=== PATIENT | male | born 1965 | race Caucasian/White ===

== ENCOUNTER → 2016-12-22 | Day surgery (SDC) | payer OTHER, MEDICARE ==
[~2016-12-22] VITALS: Ht 175.3 cm; Wt 108.9 kg
[~2016-12-22] MED LIST: ASPIRIN EC325 MG PO; BENAZEPRIL HCL5 MG PO; GLIPIZIDE10 M2 PO; LANTUS SOL100 UNIT/1 SC; LOPRESSOR 25MG25 MG PO; LOTENSIN10 MG PO; LOVENOX40 MG/0.1 SC; MELOXICAM15 M1 PO; METOPROLOL TART25 M1 PO; NEURONTIN100 M1 PO; NEURONTIN100 MG PO; OXYCODONE HCL10 M2 PO; PERCOCET 5-3251 EACH PO; PRAVASTATIN SOD10 MG; PRAVASTATIN SOD40 M2 PO; PROTONIX40 M3 PO
--- NOTE | 2016-12-22 10:07 | Operative Report ---
Operative/Inv Procedure Report Surgery Date: 12/22/16 Name of Procedure: right epididymal cyst excision Pre-Operative Diagnosis: right testicle pain with epididymal cyst Post-Operative Diagnosis: same Estimated Blood Loss: less than 50ml Surgeon/Standards Engineer: DARIA LORENZO MD Anesthesia: laryngeal mask airway Complications: none Condition: stable Operative Indication: right testicle pain with an enlarged right epididiymal cyst Operative/Procedure Note Note: 51 yo male with a hx of right testicle pain. Scrotal US showed rigth enlarged epidymal cyst. He desired to have this excised. He understands that his pain may not change. Risks, benefits and alternatives were given and all questions answered. Patient was taken to the operating room and placed on the operating room table in the supine position. He was prepped and draped in the standard sterile fashion after being shaved. 1%lidocaine was infiltrated into the right cord area. An incision was made over the overlying cyst on the right side. The layers were cut into with the scalpel until the cyst was encountered. The cyst was carefully dissected free from the surrounding tissue and excised in its entirety intact. This was passed off the field for pathology evaluation. The area was inspected and any bleedrs were point coagulated with the bovie cautery. The layers were closed with 3-0 vicryl sutures interrrupted. This was followed by interrupted 3-0 chromic cutures. Telfa was applied after bacitracin and a scotral support with fluff. The sponge and needle count were correct at the end of the case and the patient tolerated the procedure well. Findings: right enlarged epididymal cyst Discharge Disposition: PACU
== END ==
LOC: STS 04:25
DX: N50.3 Cyst of epididymis (principal); N50.811 Right testicular pain; I10 Essential (primary) hypertension; E11.9 Type 2 diabetes mellitus without complications; Z79.84 Long term (current) use of oral hypoglycemic drugs; F17.200 Nicotine dependence, unspecified, uncomplicated
CPT/HCPCS: 88305; J0690; J2250

== ENCOUNTER 2017-04-26 04:24 | Inpatient (IN) | payer OTHER, MEDICARE ==
[~2017-04-26] VITALS: Ht 175.3 cm; Wt 106.1 kg
[~2017-04-26 04:24] MED LIST changes: -LOVENOX40 MG/0.1 SC; -METOPROLOL TART25 M1 PO; -PERCOCET 5-3251 EACH PO
--- NOTE | 2017-04-26 10:00 | Operative Report ---
Operative/Inv Procedure Report Surgery Date: 04/26/17 Name of Procedure: Right total knee arthroplasty Pre-Operative Diagnosis: Right knee degenerative joint disease Post-Operative Diagnosis: Right knee degenerative joint disease Estimated Blood Loss: 50ml to 100ml Surgeon/Assignment Clerk: MONIQUE ROY,BENJAMIN Stevens Anesthesia: block, spinal Implants: [employer] Legion Size 7 cruciate retaining legion oxinium femoral component Size 7 mm tibia baseplate 9 mm legion CR XLPE high flexion insert 23 mm patella Drains: Hemovac Complications: None Condition: Stable to PACU Operative Indication: This is a 51-year-old male with long-standing right knee pain that has failed conservative care. X-ray showed advanced knee arthritis. Risks and benefits of the procedure were discussed with the patient at length. Risks include but are not limited to nerve damage, muscle damage, infection, blood loss, blood clots, pulmonary embolus, and even . The patient agreed to the above risks and elected to proceed with surgery. Operative/Procedure Note Note: The patient was taken to the operating room. Anesthesia was induced after the timeout was performed. The lower extremity was prepped and draped in the normal sterile fashion. IV antibiotics were given prior to incision. The site marking was visualized prior to incision. After the leg was prepped and draped, an esmarch was used to exsanguinate the extremity. The tourniquet was inflated. A midline incision was made proximal to the patella extending down to the tibial tubercle. A medial parapatellar approach was then made. The skin was retracted and the extensor mechanism was incised. The knee was taken down into full extension. The patellar fat pad was resected. The medial retinaculum was then taken down. The synovium over the distal femur was then resected. The patella was everted and the knee was flexed up. The lateral meniscus was then excised. The ACL was removed. A drill was then used to open up the distal femur. The intramedullary guide was then applied. A 6 distal femoral cut was then made. The femur was then sized. The chamfer guide was then applied. The anterior, posterior, and chamfer cuts were then made while protecting the patellar tendon with a Hohmann retractor in the medial collateral ligament with a Z retractor. A pickle fork was then used to deliver the tibia. The extramedullary tibial guide was then applied. The proximal tibial cut was made. The medial and lateral meniscus were then excised. The osteophytes were removed with a Rongeur. The tibia was sized and the trial base plate was then pinned in place. A trial femoral component was placed and a trial polyethylene insert was then applied as well. The knee was taken through a range of motion and was noted to be quite stable. The patella was then everted, sized, and then reamed. A trial patellar component was placed and the knee was taken through range of motion. The patella was noted to be quite stable. All trial instruments were then removed. The knee was copiously irrigated. Retractors were placed in the final components were then cemented in. A trial polyethylene insert was then placed. After the cement was hardened, the excess cement was removed. The trial poly-insert was then removed. The knee was copiously irrigated. The final poly insert was inserted. The tourniquet was let down. Any bleeding vessels were identified and cauterized. A 1/8 inch Hemovac drain was then placed. The extensor mechanism was closed with #1 Vicryl suture in a simple interrupted fashion. The skin was closed with 2-0 Vicryl suture. A running subcuticular 4-0 Monocryl stitch was then placed. Dermabond was applied. A dry sterile dressing was placed and patient was transferred to PACU in stable condition.
[2017-04-26 13:30] VITALS: BP 138/72
[2017-04-26 14:00] VITALS: BP 138/72
--- NOTE | 2017-04-26 15:15 | NUR ---
NURSING NOTE: PT ARRIVED TO FLOOR AT 1323. PT A&O, DSG TO RIGHT KNEE CDI, TIMBO DRAIN AND ON Q PUMP IN PLACE. IVF INFUSING. MEDICATED WITH IV DILAUDID FOR PAIN OF 7/10 WITH GOOD RESULTS. MCGEE IN PLACE. RESTING COMFORTABLY IN BED AT PRESENT TIME.
--- NOTE | 2017-04-26 15:45 | Admission Core Measures ---
Admission Meds I reviewed the following Meds: Current Medications Sig/Henny Start time Last Medication Dose Stop Time Status Admin Acetaminophen 1,000 MG Q6H 04/26 1600 AC (Ofirmev) Cefazolin Sodium 2 GM IQ8 04/26 1600 AC (Kefzol) 04/27 0029 N/A 1 UNIT (No Carrier) Docusate Sodium 100 MG DAILY NEEDED PRN 04/26 1345 AC (Colace) Enoxaparin Sodium 40 MG DAILY 04/27 1000 AC (Lovenox) Hydromorphone HCl 1 MG Q2-3 HRS NEEDED.. 04/26 1345 AC 04/26 (Dilaudid) 1338 Insulin Human Regular 0 TIDAC/HS 04/26 1200 AC (NovoLIN R) Ketorolac 30 MG Q6H 04/26 1900 AC Tromethamine 04/29 1301 (Toradol) Lisinopril 10 MG DAILY 04/27 1000 AC (Prinivil) Nicotine 21 MG DAILY 04/26 1407 AC (Nicoderm) Ondansetron HCl 4 MG Q6P PRN 04/26 1345 AC (Zofran) Oxycodone HCl 5 MG Q4P PRN 04/26 1415 AC (Roxicodone) Oxycodone HCl 10 MG Q4P PRN 04/26 1345 AC (Roxicodone) Polyethylene Glycol 17 GM DAILY NEEDED PRN 04/26 1345 AC (Miralax) Promethazine HCl 12.5 MG Q6P PRN 04/26 1345 AC (Phenergen) 05/03 1014 Sodium Chloride 1,000 ML .[id number] 04/26 1345 AC 04/26 (Normal Saline 0.9%) 1338 Acute Coronary Syndrome Inclusion Criteria ACS Diagnosis No Inpatient Core Measures LDL Reminder: If No, please order W/I first 24hr of stay Congestive Heart Failure Inclusion Criteria CHF Diagnosis No Cerebrovascular accident Inclusion Criteria CVA/TIA Diagnosis No Inpatient Core Measures Bedside Swallow Eval Reminder: If BSE failed, place ST order Antithrombotic Reminder: Order Antithrombotic Medication by end of day 2 Antithrombotic Reminder: Document Reason Antithrombotic Not ordered by end of day 2 AFIB/Flutter Reminder: If Present, add to problem list AFIB/Flutter Reminder: Order Anticoag Medication for pts with AFIB/Flutter Atherosclerosis Reminder: If Present, add to problem list LDL Reminder: If No, please order W/I first 24hr of stay PT Order Reminder: If No, please order Venous thromboembolism Inpatient Core Measures VTE Risk Factors: Age > 40, Surgery [facility] prophylaxis d/t No contraindications No VTE Pharm Prophylaxis d/t No contraindications Inclusion Criteria - Per Current guidelines, there needs to be overlap - treatment for the first 5 days of Warfarin therapy. - Parenteral Anticoagulation (IV or SC) needs to be - given along with Warfarin therapy. VTE Diagnosis No VTE Type NONE VTE Confirmed by (Test) NONE Problem List As ranked by this Provider includes Assessment & Plan 1. Unilateral primary osteoarthritis, right knee HOME MEDS Home Med List Benazepril HCl 5 MG TABLET 2 TAB PO DAILY HTN (Reported) Gabapentin (Neurontin) 100 MG CAPSULE 1 CAP PO TID PAIN (Reported) Glipizide 10 MG TAB 1 TAB PO BID diabetes (Reported) Insulin Glargine,Hum.rec.anlog (Lantus Solostar) 100 UNIT/ML (3 ML) INSULN.PEN 40 UNITS SC BID DM II (Reported) Meloxicam 15 MG TAB 1 TAB PO DAILY pain (Reported) Metoprolol Tartrate (Lopressor) 25 MG TAB 25 MG PO BID Heart OXYCODONE HCL (Oxycodone Hydrochloride) 10 MG TAB 1 TAB PO BID PAIN (Reported ) Pantoprazole Sodium (Protonix) 40 MG TAB 40 MG PO DAILY ACID REFLUX (Reported ) Pravastatin Sodium 40 MG TAB 1 TAB PO DAILY hyperlipidemia (Reported)
--- NOTE | 2017-04-26 16:18 | PN- Orthopedic ---
Subjective Subjective: No acute intra-operative events reported. Patient is pod 0, s/p right tka. He tolerated the procedure and has been admitted to the general surgical floor. He presently states that his pain is tolerable. He denies chest pain, shortness of breath and difficulty breathing. He denies nausea and vomitting, he tolerated his lunch. He has a romero catheter. He has yet to ambulate with PT. Objective Vital Signs and I&Os Vital Signs Date Time Temp Pulse Resp B/P B/P Pulse O2 O2 Flow FiO2 Mean Ox Delivery Rate 04/26 1400 98.9 74 18 138/72 04/26 1353 Room Air Room Air 04/26 1330 98.9 74 18 138/72 94 Room Air Room Air Intake & Output 04/26 1600 04/26 0800 04/26 0000 04/25 1600 04/25 0800 04/25 0000 Intake Total 480 Output Total 350 Balance 130 Intake, Oral 480 Output, Urine 350 Patient 234 lb Weight Physical Exam: General: Alert and oriented x3, no acute distress Cardiac: RRR, s1s2 Pulm: CTA bilaterally ABD: Non-tender, non-distended Extremities: Moves all extremities, distal sensation intact. Motor 5/5 in plantar and dorsi flexion. Skin warm and well perfused. DP pulses palpable bialterally. Surgical site: Right knee, dressing dry and intact. Assessment/Plan Assessment/Plan This is a 51 year old male with a PMH significant for HTN, DM, Etoh use, and smoking 1.5 ppd. He was admitted to the hospital for post operative managment of a total knee replacement. He requires IV antibiotics as well as IV pain medication in the initial post operative cours. He has a history of Etoh use and has been placed on a CIWA protocol. -Pain: Scheduled IV offirmev 1 gram to be given every 6 hours for 4 doses beginning post op day 0. Scheduled IV toradol, 30 (per Dr. Pastor) mg, to be given every 6 hours, dosing to be staggered with offirmev Oxycodone 5 mg q4 hours prn pain 1-5 Oxycodone 10 mg q 4 hours prn pain 6-10 Dilaudid 1 mg iv q 2-3 hours prn for breakthrough pain Continue home Gabapentin -Etoh: CIWA protocol with standard ativan order -Tobacco: Nicotine patch 21 g daily -Htn: Continue home lisinopril and metoprolol -DM Insulin sliding scale, glipizide Abx ppx: Ancef 2 gram q 8 hours x2 additional doses DVT ppx: Lovenox 40 sc daily Bowel regimen: colace and miralax as needed PT tomorrow, wbat Will d/w Dr. Pastor Core Measures/Miscellaneous Venous Thromboembolism VTE Risk Factors: Age > 40, Surgery VTE Contraindications: No Contraindications VTE Diagnosis: No VTE Type: NONE VTE Confirmed by (Test): NONE Beta Jeb Is Beta Jeb a Home Med? Yes If Yes, Was This Ordered Today? Yes Antibiotics Is Patient on Antibiotics? Yes If Yes: prophylaxis
[2017-04-26 19:43] VITALS: BP 126/66
[2017-04-26 19:45] VITALS: BP 130/60
[2017-04-26 23:40] VITALS: BP 144/74
[2017-04-27 03:56] VITALS: BP 148/78
[2017-04-27] MEDS ORDERED: METOPROLOL TART25 M1 PO (07:46)
--- NOTE | 2017-04-27 07:55 | PN- Orthopedic ---
See Addendum Subjective Subjective: No acute overnight events reported. Patient states that pain is under control presently but he is discouraged by the fact that he cant bend his knee. He denies chest pain, shortness of breath and difficulty breathing. He denies nausea and vomitting. Cohen catheter dc'd this am, has yet to void. Is tolerating po. Has yet to ambulate. Objective Vital Signs and I&Os Vital Signs Date Time Temp Pulse Resp B/P B/P Pulse O2 O2 Flow FiO2 Mean Ox Delivery Rate 04/27 0356 98.4 78 20 148/78 92 Room Air 04/26 2340 99.0 74 18 144/74 94 Room Air 04/26 1945 98.2 76 18 130/60 97 Room Air 04/26 1943 98.1 75 18 126/66 95 Room Air 04/26 1400 98.9 74 18 138/72 04/26 1353 Room Air Room Air 04/26 1330 98.9 74 18 138/72 94 Room Air Room Air Intake & Output 04/27 0800 04/27 0000 04/26 1600 04/26 0800 04/26 0000 14 1600 Intake Total 940 925 480 Output Total 460 50 350 Balance 480 875 130 Intake, IV 700 325 Intake, Oral 240 600 480 Output, 10 50 Drainage Output, Urine 450 350 Patient 234 lb Weight Physical Exam: General: Alert and oriented x3, no acute distress Cardiac: RRR, s1s2 Pulm: CTA bilaterally Abdomen: Non-tender, non-distended Extremities: Moves all extremities, distal sensation intact. Skin warm and well perfused. DP pulses palpable. Bilateral calves soft and non-tender. Surgical site: Right knee: Dressing dry and intact. TIMBO holding suction, sanguinous drainage, less than 5cc in bulb presently. ON Q in place, no evidence of leak. Assessment/Plan Assessment/Plan Assessment/Plan This is a 51 year old male with a PMH significant for HTN, DM, Etoh use, and smoking 1.5 ppd. He is now POD 1, s/p right total knee arthroplasty. He was admitted to the hospital for post operative managment, he has required IV antibiotics for the first 24 hours postop and continues to require IV pain medication. He has a history of Etoh use and has been placed on a CIWA protocol. -Pain: IV toradol, 30 mg, to be given every 8 hours, prn Oxycodone 5 mg q4 hours prn pain 1-5 Oxycodone 10 mg q 4 hours prn pain 6-10 Dilaudid 1 mg iv q 2-3 hours prn for breakthrough pain Continue home Gabapentin -Etoh: CIWA protocol with standard ativan order -Tobacco: Nicotine patch 21 g daily -Htn: Continue home lisinopril and metoprolol -DM Insulin sliding scale, glipizide Abx ppx: Ancef 2 gram q 8 hours x2 additional doses completed DVT ppx: Lovenox 40 sc daily Bowel regimen: colace and miralax as needed PT tomorrow, wbat, ROM to improve flexion Will d/w Dr. Pastor Core Measures/Miscellaneous Venous Thromboembolism VTE Risk Factors: Age > 40, Surgery VTE Contraindications: No Contraindications VTE Diagnosis: No VTE Type: NONE VTE Confirmed by (Test): NONE Beta Jeb Is Beta Jeb a Home Med? Yes If Yes, Was This Ordered Today? Yes Antibiotics Is Patient on Antibiotics? Yes If Yes: prophylaxis
[2017-04-27 07:57] LABS: ABSOLUTE BASOPHIL COUNT 0 /CUMM (0.0-0.2); ABSOLUTE EOSINOPHIL COUNT 0.3 /CUMM (0.0-0.7); ABSOLUTE GRANULOCYTE CT 5.4 /CUMM (1.4-6.5); ABSOLUTE LYMPH COUNT 1.1 /CUMM (1.2-3.4); ABSOLUTE MONOCYTE COUNT 0.7 /CUMM (0.10-0.60); BASOPHIL % 0.5 % (0.0-2.0); EOSINOPHIL % 3.6 % (0-5); GRANULOCYTE % 72.1 % (42.2-75.2); HEMATOCRIT 39.6 % (42-52); MEAN CORPUSCULAR HGB CONC 33.5 G/DL (33.0-37.0); MEAN CORPUSCULAR VOLUME 89.5 FL (80.0-94.0); MEAN PLATELET VOLUME 9.1 FL (7.4-10.4); PLATELET COUNT 145 /CUMM (130-400); RBC DISTRIBUTION WIDTH 13.9 % (11.5-14.5); RED BLOOD CELL CT 4.42 /CUMM (4.70-6.10); WHITE BLOOD CELL COUNT 7.5 /CUMM (4.8-10.8)
[2017-04-27 08:00] VITALS: BP 144/70
[2017-04-27 12:07] VITALS: BP 164/92
[2017-04-27 20:39] VITALS: BP 162/86
[2017-04-28 06:52] VITALS: BP 160/82
[2017-04-28] MEDS ORDERED: LOVENOX40 MG/0.1 SC (09:45)
[2017-04-28] MEDS ORDERED: PERCOCET 5-3251 EACH PO (09:46)
--- NOTE | 2017-04-28 09:50 | Patient Discharge Instructions ---
Discharge Instructions General Discharge Information You were seen/treated for: Right knee pain related to unilateral primary osteoarthritis You had these procedures: Right total knee replacement Watch for these problems: Increasing pain despite the use of pain medication. Increasing redness, warmth, or swelling. Drainage of any type from incision. Inability to bear weight on right leg. Persistent nausea and vomitting. Fever > 101.5 Do not soak the wound: Yes No bath, but you may shower: Yes Other wound care: Keep wound clean and dry. Daily dry dressing changes recommended. Special Instructions: Daily lovenox injection to help prevent the development of blood clot. Follow up with pain coordinator upon discharge from hospital. Diet Continue normal diet: Yes Recommended Diet: Diabetic Activity Full Activity/No Limits: No Activity Self Limited: Yes Pounds, do NOT lift more than: 10 Acute Coronary Syndrome Inclusion Criteria At DC or during hospital stay patient has or had the following: ACS DIAGNOSIS No Discharge Core Measures Meds if any: Prescribed or Continued at Discharge Meds if any: NOT Prescribed or Continued at Discharge Congestive Heart Failure Inclusion Criteria At DC or during hospital stay patient has or had the following: CHF DIAGNOSIS No Discharge Core Measures Meds if any: Prescribed or Continued at Discharge Meds if any: NOT Prescribed or Continued at Discharge Cerebrovascular accident Inclusion Criteria At DC or during hospital stay patient has or had the following: CVA/TIA Diagnosis No Discharge Core Measures Meds if any: Prescribed or Continued at Discharge Meds if any: NOT Prescribed or Continued at Discharge Venous thromboembolism Inclusion Criteria VTE Diagnosis No VTE Type NONE VTE Confirmed by (Test) NONE Discharge Core Measures - Per Current guidelines, there needs to be overlap - treatment for the first 5 days of Warfarin therapy. - If discharged on Warfarin prior to 5 days of - overlap therapy, the patient will need to be - assessed for post discharge needs including - *Post discharge parental anticoagulation - *Warfarin and/or parental anticoagulation education - *Follow up date to check INR post discharge At least 5 days overlap therapy as Inpatient No Meds if any: Prescribed or Continued at Discharge Note: Overlap Therapy is Warfarin and Anticoagulant Meds if any: NOT Prescribed or Continued at Discharge
--- NOTE | 2017-04-28 09:54 | Surgical Discharge Summary ---
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 Home Who Do You Live With? Significant Other Services at Home: None What is Your Primary Language? Nicaraguan Review of Systems: see H&P Hospital Course Course Attending Physician: PATRICIA PASTOR MD Primary Care Physician: PRIMO ROY,[place] [facility] Course: Raudel was admitted to the hospital on 04/26/2017 for an elective right total knee replacement. He tolerated the procedure well and was transferred to a general surgical floor. His diet was advanced and tolerated, he voided spontaneously, and he was evaluated and treated by physical therapy. At the time of hospital discharge, his vital signs were stable and within normal limits , his neurovascular status was intact, and his pain was controlled with po pain medication. Allergies: Coded Allergies: NO KNOWN ALLERGIES (12/21/16) Disposition Summary Disposition Principal Diagnosis: Right knee unilateral primary osteoarthritis Additional Diagnosis: None Discharge Disposition: home health services Discharge Instructions General Discharge Information Code Status: Full Code Patient's Diet: Diabetic, advance as tolerated Patient's Activity: WBAT Follow-Up Instructions/Appts: Follow up with Dr. Pastor in two weeks from date of surgery Medications at Discharge Discharge Medications: Continue taking these medications: Glipizide (Glipizide) 10 MG TABLET 1 Tablet ORAL TWICE DAILY Meloxicam (Meloxicam) 15 MG TABLET 1 Tablet ORAL DAILY Pravastatin Sodium (Pravastatin Sodium) 40 MG TABLET 1 Tablet ORAL DAILY Oxycodone HCl (Oxycodone HCl) 10 MG TABLET 1 Tablet ORAL TWICE DAILY as needed for PAIN SCALE 4-6 (MODERATE) Gabapentin (Neurontin) 100 MG CAPSULE 3 Capsule ORAL THREE TIMES DAILY Pantoprazole Sodium (Protonix) 40 MG TABLET.DR 1 Tablet ORAL DAILY Benazepril HCl (Benazepril HCl) 5 MG TABLET 2 Tablet ORAL DAILY Insulin Glargine,Hum.rec.anlog (Lantus Solostar) 100 UNIT/ML (3 ML) INSULN.PEN 40 Units Inject into fatty tissue TWICE DAILY Metoprolol Tartrate (Metoprolol Tartrate) 25 MG TABLET 1 Tablet ORAL TWICE DAILY Start taking the following new medications: Enoxaparin Sodium (Lovenox) 40 MG/0.4 ML SYRINGE 0.4 Milliliters Inject into fatty tissue DAILY Qty = 30 No Refills Oxycodone HCl/Acetaminophen (Percocet 5-325 MG Tablet) 5 MG-325 MG TABLET 1-2 Tablet ORAL EVERY 4-6 HOURS as needed for PAIN Qty = 36 No Refills
--- NOTE | 2017-04-28 10:23 | PN- General Surgery ---
See Addendum Subjective Subjective: Patient reporting no acute overnight events. Ambulated with PT this am and tolerated it well. Denies chest pain, shortness of breath and difficulty breathing. Denies nausea and vomitting. Has been voiding. Is anticipating discharge to home today. Objective Vital Signs and I&Os Vital Signs Date Time Temp Pulse Resp B/P B/P Pulse O2 O2 Flow FiO2 Mean Ox Delivery Rate 04/28 0921 82 158/80 04/28 0920 82 158/80 04/28 0652 99.3 82 20 160/82 92 04/27 2039 100.0 87 20 162/86 95 Room Air 04/27 1207 98.2 80 20 164/92 92 Room Air Intake & Output 04/28 1600 04/28 0800 04/28 0000 04/27 1600 04/27 0800 04/27 0000 Intake Total 100 750 600 940 925 Output Total 2925 1400 200 460 50 Balance -2825 -650 400 480 875 Intake, IV 100 700 325 Intake, Oral 750 600 240 600 Output, 10 50 Drainage Output, Urine 2925 1400 200 450 Physical Exam: General: Alert and oriented x3, no acute distres Cardiac: RRR, s1s2 Pulm: CTA bilaterally Abdomen: Non-tender, non-distended Extremties: Moves all extremities, distal sensation intact. Skin warm and well perfused. Dressing taken down. Skin edges well approximated. No excessive redness, warmth. No drainage. Clean dry dressing reapplied. Assessment/Plan Assessment/Plan Assessment/Plan This is a 51 year old male with a PMH significant for HTN, DM, Etoh use, and smoking 1.5 ppd. He is now POD 2, s/p right total knee arthroplasty. He was admitted to the hospital for post operative managment, he anticipates a discharge today. He has a history of Etoh use and has been placed on a CIWA protocol. -Pain: Oxycodone 5 mg q4 hours prn pain 1-5 Oxycodone 10 mg q 4 hours prn pain 6-10 Will be discharged on percocet and home dose of oxycodone WIll follow up with pain managment Continue home Gabapentin -Etoh: CIWA protocol with standard ativan order -Tobacco: Nicotine patch 21 g daily -Htn: Continue home lisinopril and metoprolol -DM Continue home meds DVT ppx: Lovenox 40 sc daily Bowel regimen: colace and miralax as needed PT tomorrow, wbat, ROM to improve flexion Will d/w Dr. Pastor Core Measures/Miscellaneous Venous Thromboembolism VTE Risk Factors: Age > 40, Surgery VTE Contraindications: No Contraindications VTE Diagnosis: No VTE Type: NONE VTE Confirmed by (Test): NONE Beta Jeb Is Beta Jeb a Home Med? Yes If Yes, Was This Ordered Today? Yes Antibiotics Is Patient on Antibiotics? Yes If Yes: prophylaxis
[2017-04-28 11:17] VITALS: BP 142/78
--- NOTE | 2017-04-28 11:31 | NUR ---
NURSING NOTE: PT STABLE FOR DISCHARGE PER MD. ANA MARIA PO DIET, AMBULATING IN ROOM/HALLWAY W/RW. VOIDING IN URINAL. DISCHARGE INSTRUCTIONS AND PRECRIPTIONS GIVEN WITH VERBAL UNDERSTANDING.
== END 2017-04-28 11:46 | disposition home health service (06) | DRG 470 ==
LOC: SDA 04:24 → ENRESERV 11:54 → ENTRNSPT 12:45 → EDTRNSPTSTS 13:18 → 2NB 13:23 → CMPTRNSPT 13:37 → ENPENDDIS 04-28 10:19 → 2NB 04-28 11:46
PROVIDERS: Physician Assistant Surgical; ADMIT Orthopaedic Surgery
PROC: 0SRC0J9 Replacement of Right Knee Joint with Synthetic Substitute, Cemented, Open Approach (ICD-10-PCS; principal; 2017-04-26)
PROC: 3E0T3GC Introduction of Other Therapeutic Substance into Peripheral Nerves and Plexi, Percutaneous Approach (ICD-10-PCS; 2017-04-26)
DX: M17.11 Unilateral primary osteoarthritis, right knee (principal); I10 Essential (primary) hypertension; E11.9 Type 2 diabetes mellitus without complications; F17.210 Nicotine dependence, cigarettes, uncomplicated; E78.5 Hyperlipidemia, unspecified; Z79.84 Long term (current) use of oral hypoglycemic drugs
CPT/HCPCS: 2NBP; 36415; 82436; 87086; 88305; 97110-GO; 97116-GO; 97161-GP; 97530-GO; C1713; J0131; J0690; J1170; J1650; J1815; J1885; J2405; J2550; J2795

== ENCOUNTER 2017-12-06 02:12 | Inpatient (IN) | payer OTHER, MEDICARE ==
[~2017-12-06] VITALS: Ht 172.7 cm; Wt 104.3 kg
[~2017-12-06 02:12] MED LIST changes: +BENAZEPRIL HCL10 MG PO; +DICLOFENAC SODI75 M2 PO; +FARXIGA5 M1 PO; +LOVENOX40 MG/0.1 SC; +METOPROLOL TART25 M1 PO; +NEURONTIN300 M1 PO; +PERCOCET 5-3251 EACH PO
--- NOTE | 2017-12-06 07:21 | Operative Report ---
Operative/Inv Procedure Report Surgery Date: 12/06/17 Name of Procedure: Left total knee arthroplasty Pre-Operative Diagnosis: Left knee degenerative joint disease Post-Operative Diagnosis: Left knee degenerative joint disease Estimated Blood Loss: 50ml to 100ml Surgeon/Head Sawyer: Dawit ROY,BENJAMIN Holloway Anesthesia: block, spinal anesthesia Implants: [employer] size 6 left Oxinium femoral component. Size 6 tibial baseplate. 23 mm patellar insert. Size 5-6 9 mm XLPE high flexion articular insert. Drains: Hemovac Complications: None Condition: Stable to PACU Operative Indication: This is a 52-year-old male with long-standing left knee pain that has failed conservative care. Risks and benefits of the procedure were discussed with the patient at length. Risks include but are not limited to nerve damage, muscle damage, infection, blood loss, blood clots, pulmonary embolus, and even . The patient agreed to the above risks and elected to proceed with surgery. Operative/Procedure Note Note: The patient was taken to the operating room. Anesthesia was induced after the timeout was performed. The lower extremity was prepped and draped in the normal sterile fashion. IV antibiotics were given prior to incision. The site marking was visualized prior to incision. After the leg was prepped and draped, an esmarch was used to exsanguinate the extremity. The tourniquet was inflated. A midline incision was made proximal to the patella extending down to the tibial tubercle. A medial parapatellar approach was then made. The skin was retracted and the extensor mechanism was incised. The knee was taken down into full extension. The patellar fat pad was resected. The medial retinaculum was then taken down. The synovium over the distal femur was then resected. The patella was everted and the knee was flexed up. The lateral meniscus was then excised. The ACL was removed. A drill was then used to open up the distal femur. The intramedullary guide was then applied. A 6 distal femoral cut was then made. The femur was then sized. The chamfer guide was then applied. The anterior, posterior, and chamfer cuts were then made while protecting the patellar tendon with a Hohmann retractor and the medial collateral ligament with a Z retractor. A pickle fork was then used to deliver the tibia. The extramedullary tibial guide was then applied. The proximal tibial cut was made. The medial and lateral meniscus were then excised. The osteophytes were removed with a Rongeur. The tibia was sized and the trial base plate was then pinned in place. A trial femoral component was placed and a trial polyethylene insert was then applied as well. The knee was taken through a range of motion and was noted to be quite stable. The patella was then everted, sized, and then reamed. A trial patellar component was placed and the knee was taken through range of motion. The patella was noted to be quite stable. All trial instruments were then removed. The knee was copiously irrigated. Retractors were placed in the final components were then cemented in. A trial polyethylene insert was then placed. After the cement hardened, the excess cement was removed. The trial poly-insert was then removed. The knee was copiously irrigated. The final poly insert was inserted. The tourniquet was let down. Any bleeding vessels were identified and cauterized. A 1/8 inch Hemovac drain was then placed. The extensor mechanism was closed with #1 Vicryl suture in a simple interrupted fashion. The skin was closed with 2-0 Vicryl suture. A running subcuticular 4-0 Monocryl stitch was then placed. Dermabond was applied. A dry sterile dressing was placed and patient was transferred to PACU in stable condition.
[2017-12-06] MEDS ORDERED: PERCOCET 5-3251 EACH PO (12:31)
--- NOTE | 2017-12-06 12:49 | Admission Core Measures ---
Acute Coronary Syndrome (CM) ACS Core Measures Acute Coronary Syndrome Diagnosis No Congestive Heart Failure (NEW) CHF Core Measures Congestive Heart Failure Diagnosis No Cerebrovascular Accident (NEW) CVA Core Measures CVA/TIA Diagnosis No Venous Thromboembolism VTE Core Keyshawn (View Protocol) VTE Risk Factors Surgery No Mechanical VTE Prophylaxis d/t N/A MechProphylax Ordered No VTE Pharm Prophylaxis d/t NA PharmProphylax ordered Problem List As ranked by this Provider includes Assessment & Plan 1. Unilateral primary osteoarthritis, left knee HOME MEDS Home Med List Benazepril HCl 10 MG TABLET 1 TAB PO DAILY BP (Reported) Dapagliflozin Propanediol (Farxiga) 5 MG TABLET 1 TAB PO DAILY DM (Reported) Diclofenac Sodium 75 MG TABLET.DR 1 TAB PO BID PAIN/INFLAMMATION (Reported) Gabapentin (Neurontin) 300 MG CAPSULE 1 CAP PO TID NERVE PAIN (Reported) Glipizide 10 MG TABLET 1 TAB PO DAILY DM (Reported) Insulin Glargine,Hum.rec.anlog (Lantus Solostar) 100 UNIT/ML (3 ML) INSULN.PEN 40 UNITS SC BID DM II (Reported) Metoprolol Tartrate 25 MG TABLET 1 TAB PO BID HEART (Reported) Oxycodone HCl/Acetaminophen (Percocet 5-325 MG Tablet) 5 MG-325 MG TABLET 1 TAB PO Q4-6 PRN postop pain Pantoprazole Sodium (Protonix) 40 MG TABLET.DR 1 TAB PO DAILY ACID REFLUX ( Reported) Pravastatin Sodium 40 MG TABLET 1 TAB PO DAILY CHOLESTEROL (Reported)
--- NOTE | 2017-12-06 12:57 | Patient Discharge Instructions ---
Discharge Instructions General Discharge Information You were seen/treated for: Left knee pain related to unilateral primary osteoarthritis You had these procedures: Left total knee replacement Watch for these problems: Increasing pain despite the use of pain medication Increasing redness, warmth, swellling Drainage of any type from incision Inability to bear weight on left leg Fever greater than 101.5 Do not soak the wound: Yes No bath, but you may shower: Yes Other wound care: Keep wound clean and dry Special Instructions: Lovenox injections to be done daily for 4 weeks post op for prevention of blood clots Diet Continue normal diet: Yes Recommended Diet: Diabetic Activity Full Activity/No Limits: No Activity Self Limited: Yes Pounds, do NOT lift more than: 10 Acute Coronary Syndrome Inclusion Criteria At DC or during hospital stay patient has or had the following: ACS DIAGNOSIS No Discharge Core Measures Meds if any: Prescribed or Continued at Discharge Meds if any: NOT Prescribed or Continued at Discharge Congestive Heart Failure Inclusion Criteria At DC or during hospital stay patient has or had the following: CHF DIAGNOSIS No Discharge Core Measures Meds if any: Prescribed or Continued at Discharge Meds if any: NOT Prescribed or Continued at Discharge Cerebrovascular accident Inclusion Criteria At DC or during hospital stay patient has or had the following: CVA/TIA Diagnosis No Discharge Core Measures Meds if any: Prescribed or Continued at Discharge Meds if any: NOT Prescribed or Continued at Discharge Venous thromboembolism Inclusion Criteria VTE Diagnosis No VTE Type NONE VTE Confirmed by (Test) NONE Discharge Core Measures - Per Current guidelines, there needs to be overlap - treatment for the first 5 days of Warfarin therapy. - If discharged on Warfarin prior to 5 days of - overlap therapy, the patient will need to be - assessed for post discharge needs including - *Post discharge parental anticoagulation - *Warfarin and/or parental anticoagulation education - *Follow up date to check INR post discharge At least 5 days overlap therapy as Inpatient No Meds if any: Prescribed or Continued at Discharge Note: Overlap Therapy is Warfarin and Anticoagulant Meds if any: NOT Prescribed or Continued at Discharge
--- NOTE | 2017-12-06 13:03 | Surgical Discharge Summary ---
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 Significant Other Services at Home: None What is Your Primary Language? Scottish Review of Systems: See H&P Hospital Course Course Attending Physician: Simone Pastor MD Primary Care Physician: Jose Corrales MD Hospital Course: Patient was admitted to hospital for an elective left total knee replacement. He tolerated the procedure well and was transferred to a general surgical floor. His diet was advanced and tolerated. He voided spontaneously. He was evaluated and treated by physical therapy. At the time of hospital discharge, his vital signs were stable and within normal limits, his neurovascular status was intact and his pain was controlled with oral pain medication. TIMBO output was high on POD #1, so it was left in place and subsequently removed on POD #2 despite moderately high outputs. He was deemed appropriate for discharge home with home health services. Complications: none Allergies: Coded Allergies: NO KNOWN ALLERGIES (12/21/16) Disposition Summary Disposition Principal Diagnosis: Left knee unilateral primary osteoarthritis Additional Diagnosis: None Discharge Disposition: home health services Discharge Instructions General Discharge Information Code Status: Full Code Patient's Diet: Diabetic, advance as tolerated Patient's Activity: WBAT Follow-Up Instructions/Appts: Follow up with Dr. Pastor in 2 weeks from date of surgery Medications at Discharge Discharge Medications: Stop taking the following medications: Diclofenac Sodium (Diclofenac Sodium) 75 MG TABLET.DR NI TWICE DAILY Continue taking these medications: Glipizide (Glipizide) 10 MG TABLET 1 Tablet ORAL DAILY Comments: NOT GIVEN IN HOSPITAL Pravastatin Sodium (Pravastatin Sodium) 40 MG TABLET 1 Tablet ORAL DAILY Comments: Last Taken: 04/27/17 Time: 8:00 PM Pantoprazole Sodium (Protonix) 40 MG TABLET. 1 Tablet ORAL DAILY Comments: NOT GIVEN IN HOSPITAL Insulin Glargine,Hum.rec.anlog (Lantus Solostar) 100 UNIT/ML (3 ML) INSULN.PEN 40 Units Inject into fatty tissue TWICE DAILY Comments: NOT GIVEN IN HOSPITAL Metoprolol Tartrate (Metoprolol Tartrate) 25 MG TABLET 1 Tablet ORAL TWICE DAILY Comments: Last Taken: 04/28/17 Time: 9:30 AM Benazepril HCl (Benazepril HCl) 10 MG TABLET 1 Tablet ORAL DAILY Dapagliflozin Propanediol (Farxiga) 5 MG TABLET 1 Tablet ORAL DAILY Gabapentin (Neurontin) 300 MG CAPSULE 1 Capsule ORAL THREE TIMES DAILY Start taking the following new medications: Oxycodone HCl/Acetaminophen (Percocet 5-325 MG Tablet) 5 MG-325 MG TABLET 1-2 Tablet ORAL EVERY 4 HOURS NEEDED as needed for PAIN Qty = 36 No Refills Enoxaparin Sodium (Lovenox) 40 MG/0.4 ML SYRINGE 0.4 Milliliters Inject into fatty tissue DAILY Qty = 21 No Refills
[2017-12-06 14:20] VITALS: BP 148/78
--- NOTE | 2017-12-06 15:04 | PN- Orthopedic ---
Subjective Subjective: Patient reports postop pain and increased numbness, states he has a history of diabetic neuropathy. He is tolerating a diet without any nausea or vomiting. Patient states he smokes 1 1/2 ppd. He offers no other complaints Objective Vital Signs and I&Os Intake & Output 12/06 1600 12/06 0800 12/06 0000 12/05 1600 12/05 0800 12/05 0000 Intake Total Output Total Balance Patient 230 lb Weight Physical Exam: Gen - resting comfortably in bed awake an alert in NAD Cardiac - S1S2 noted, RRR Lungs - CTAB Abd - soft, obese, nontender - Cohen in place with clear urine Ext - LLE dressing with teri wrap c/d/i and jpx1 with 20 cc serosanguineous drainage, ice and onQ in place, moves all extremities, decreased sensation/motor in LLE, DP/PTpulses present, well healed right knee incision, no edema or calf tenderness, alps on RLE Current Medications: Current Medications Sig/Henny Start time Last Medication Dose Route Stop Time Status Admin Acetaminophen 1,000 MG Q6 12/06 1200 AC IV 12/07 0601 Cefazolin Sodium 2 GM IQ8 12/06 1600 AC N/A 1 UNIT IV 12/07 0029 Cefazolin Sodium 2,000 MG ONCE 12/06 0000 DC IV 12/06 2359 Docusate Sodium 100 MG DAILY NEEDED PRN 12/06 1430 AC PO Enoxaparin Sodium 40 MG DAILY 12/07 1000 AC SC Fentanyl Citrate 100 MCG .STK-MED ONE 12/06 0659 DC IM 12/06 0700 Gabapentin 100 MG Q8 12/06 1400 AC PO Glipizide 10 MG DAILY AC 12/07 0700 AC PO Insulin Detemir 40 UNITS BID 12/06 2200 AC SC Insulin Human Regular 0 TIDAC/HS 12/06 1200 AC SC Ketorolac 30 MG Q6 12/06 1200 AC Tromethamine IV 12/09 0601 Lactated Ringer's 1,000 ML Q13H 12/06 1430 AC IV Lisinopril 10 MG DAILY 12/07 1000 AC PO Metoprolol Tartrate 25 MG BID 12/06 2200 AC PO Midazolam HCl 2 MG .STK-MED ONE 12/06 0718 DC IM 12/06 0719 Midazolam HCl 4 MG .STK-MED ONE 12/06 0659 DC IM 12/06 0700 Morphine Sulfate 4 MG Q4 HRS NEEDED PRN 12/06 1430 AC IV Nicotine 14 MG DAILY 12/06 1443 AC TOP Omeprazole 40 MG DAILY AC 12/07 0700 AC PO Ondansetron HCl 4 MG Q6P PRN 12/06 1430 AC IV Oxycodone HCl 5 MG Q4P PRN 12/06 1430 AC PO Oxycodone HCl 10 MG Q4P PRN 12/06 1430 AC PO Polyethylene Glycol 17 GM DAILY NEEDED PRN 12/06 1430 AC PO Pravastatin Sodium 40 MG 1700 12/06 1700 AC PO Promethazine HCl 12.5 MG Q6P PRN 12/06 1430 AC IV 12/13 1014 Ropivacaine 500 ML ONCE ONE 12/06 0945 AC ON-Q Ball 1 BAG INJ 12/08 1144 Senna/Docusate Sodium 2 TAB AT BEDTIME NEED.. 12/06 1430 AC PO Tranexamic Acid 2,000 MG .STK-MED ONE 12/06 0659 DC IV 12/06 07 Results Last 48 Hours of Labs: Laboratory Tests 12/06 0615 Coagulation PT Cancelled INR Cancelled Assessment/Plan Assessment/Plan 52 M POD 0 s/p L TKA secondary to DJD of left knee PT eval, WBAT Ada diet, IVF Pain regimen, onQ, ice prn Postop abx - ancef x2 TIMBO to bulb suction DVT ppx - alps, lovenox 40 in am GI ppx on board Bowel regimen on board Resume home meds Encourage IS D/c nick in am Labs in am Nicotine patch ordered Core Measures Venous Thromboembolism VTE Risk Factors Surgery No Mechanical VTE Prophylaxis d/t N/A MechProphylax Ordered No VTE Pharm Prophylaxis d/t NA PharmProphylax ordered
[2017-12-06 17:00] VITALS: BP 140/90
[2017-12-06 19:00] VITALS: BP 140/70
[2017-12-07 01:20] VITALS: BP 120/74
[2017-12-07 05:00] VITALS: BP 140/90
[2017-12-07] MEDS ORDERED: LOVENOX40 MG/0.1 SC (07:31)
--- NOTE | 2017-12-07 07:43 | PN- Orthopedic ---
Subjective Subjective: No complaints, feeling well, no acute events overnight Objective Vital Signs and I&Os Vital Signs Date Time Temp Pulse Resp B/P B/P Pulse O2 O2 Flow FiO2 Mean Ox Delivery Rate 12/07 0500 97.8 77 20 140/90 92 Room Air 12/07 0120 97.9 86 20 120/74 91 Room Air 12/06 2053 98.3 20 92 Room Air 12/06 2040 80 150/88 12/06 1900 98.8 89 20 140/70 93 Room Air 12/06 1700 97.9 84 20 140/90 93 Room Air 12/06 1420 98.1 84 18 148/78 Intake & Output 12/07 0800 12/07 0000 12/06 1600 12/06 0800 12/06 0000 12/05 1600 Intake Total Output Total 1710 Balance -1710 Output, 60 Drainage Output, Urine 1650 Patient 230 lb Weight Physical Exam: Well-developed well-nourished no apparent distress. HEENT: Atraumatic, extraocular motion intact Neck: Supple, no lymphadenopathy Respiratory: No respiratory distress Extremities: No edema LEFT lower extremity dressing in place, a intact TIMBO drain in place with 75 mL of bloody drainage noted Range of motion 0-45, calves are supple, nontender. Neurovascularly intact distally Neuro: Alert and oriented x3 Psych: Mood affect normal, normal memory normal judgment. Skin: Warm and dry, no rash on exposed skin Results Last 48 Hours of Labs: Laboratory Tests 12/06 0615 Coagulation PT Cancelled INR Cancelled Assessment/Plan Assessment/Plan Postop day 1 status post left total knee arthroplasty Perioperative antibiotics completed. Pain medication as needed. Out of bed Physical therapy, weightbearing as tolerated Diabetic diet Follow a.m. labs Lovenox for DVT prophylaxis ALPS for DVT prophylaxis Regular home meds Dressing change postop day 2 DC TIMBO drain later today Anticipate discharge home tomorrow with [facility] services pt seen and examed with Dr Pastor Core Measures Venous Thromboembolism VTE Risk Factors Surgery No Mechanical VTE Prophylaxis d/t N/A MechProphylax Ordered No VTE Pharm Prophylaxis d/t NA PharmProphylax ordered
[2017-12-07 08:00] VITALS: BP 140/90
[2017-12-07 09:23] LABS: ABSOLUTE BASOPHIL COUNT 0 /CUMM (0.0-0.2); ABSOLUTE EOSINOPHIL COUNT 0 /CUMM (0.0-0.7); ABSOLUTE GRANULOCYTE CT 10.6 /CUMM (1.4-6.5); ABSOLUTE LYMPH COUNT 1.5 /CUMM (1.2-3.4); ABSOLUTE MONOCYTE COUNT 0.6 /CUMM (0.10-0.60); BASOPHIL % 0.1 % (0.0-2.0); EOSINOPHIL % 0.1 % (0-5); HEMATOCRIT 41.7 % (42-52); MEAN CORPUSCULAR HGB 30.1 PG (27.0-31.0); MEAN CORPUSCULAR HGB CONC 34.3 G/DL (33.0-37.0); MEAN CORPUSCULAR VOLUME 87.6 FL (80.0-94.0); MEAN PLATELET VOLUME 9.8 FL (7.4-10.4); PLATELET COUNT 201 /CUMM (130-400); RED BLOOD CELL CT 4.76 /CUMM (4.70-6.10); WHITE BLOOD CELL COUNT 12.8 /CUMM (4.8-10.8)
[2017-12-07 11:50] VITALS: BP 140/70
[2017-12-07 14:06] VITALS: BP 140/90
[2017-12-07 21:19] VITALS: BP 118/70
[2017-12-08 06:00] VITALS: BP 118/70
[2017-12-08 10:05] LABS: ABSOLUTE BASOPHIL COUNT 0 /CUMM (0.0-0.2); ABSOLUTE EOSINOPHIL COUNT 0.2 /CUMM (0.0-0.7); ABSOLUTE LYMPH COUNT 1.9 /CUMM (1.2-3.4); ABSOLUTE MONOCYTE COUNT 0.7 /CUMM (0.10-0.60); BASOPHIL % 0.5 % (0.0-2.0); EOSINOPHIL % 2.2 % (0-5); GRANULOCYTE % 70.9 % (42.2-75.2); HEMATOCRIT 37.5 % (42-52); MEAN CORPUSCULAR HGB 30.1 PG (27.0-31.0); MEAN CORPUSCULAR HGB CONC 33.9 G/DL (33.0-37.0); MEAN CORPUSCULAR VOLUME 88.7 FL (80.0-94.0); MEAN PLATELET VOLUME 9.2 FL (7.4-10.4); PLATELET COUNT 188 /CUMM (130-400); RBC DISTRIBUTION WIDTH 13.3 % (11.5-14.5); RED BLOOD CELL CT 4.23 /CUMM (4.70-6.10); WHITE BLOOD CELL COUNT 9.9 /CUMM (4.8-10.8)
--- NOTE | 2017-12-08 10:44 | PN- Orthopedic ---
See Addendum Subjective Subjective: Pt is doing ok. No major complaints other than some minor nuances regarding alarms, difficulty sleeping, etc. Pain level is 8/10 about 3 hours after oxycodone. He is still requiring IV morphine for breakthrough pain. Tolerated PT well and has been cleared for stairs at home. Tolerating diet. No nausea or vomiting. Voiding well. No BM reported yet. TIMBO continues to drain blood (400 cc over 24 hours). Objective Vital Signs and I&Os Vital Signs Date Time Temp Pulse Resp B/P B/P Pulse O2 O2 Flow FiO2 Mean Ox Delivery Rate 12/08 1013 83 118/70 12/08 1012 83 118/70 12/08 0600 98.0 83 18 118/70 94 Room Air 12/07 2119 97.7 72 18 118/70 93 Room Air 12/07 2115 72 118/70 12/07 1406 97.9 78 20 140/90 94 Room Air 12/07 1150 97.6 78 20 140/70 94 Room Air Intake & Output 12/08 1600 12/08 0800 12/08 0000 12/07 1600 12/07 0800 12/07 0000 Intake Total 240 900 350 400 Output Total 560 755 951 372 3027 Balance -320 145 115 -490 -1710 Intake, IV 120 300 Intake, Oral 120 900 350 100 Output, 110 155 135 90 60 Drainage Output, Urine 450 600 [phone] Physical Exam: Gen.: Patient is awake and alert. No acute distress. Cardiac: Regular Pulmonary: Clear to auscultation bilaterally Extremities: The left knee Venancio wrap dressing was removed. Outer bandage was also removed. Incision is clean, dry, and intact with surgical glue in place. Swelling is within expected limits. TIMBO drain contains bloody output. Lower extremity sensation is intact. Strength of dorsiflexion and plantarflexion are 5/5. Assessment/Plan Assessment/Plan Patient is a 52-year-old male who is now postoperative day #2 status post left total knee replacement. TIMBO drain remains in place due to high bloody output. He is otherwise recovering well from a surgical standpoint. Plan: -I spoke with Dr. Pastor regarding the TIMBO output. He would like patient to flex his knee at 90 for at least an hour and then we will check TIMBO output. If it improves, we will pull the TIMBO drain and patient can be discharged home. -Okay to continue Lovenox 40 mg once daily for prophylaxis. Alps can be used while in bed. -Oxycodone as needed for pain. Will attempt to wean the IV morphine. -Dry dressing in place. -Continue PT for mobilization. -Anticipate discharge later today if TIMBO output has improved. Tomorrow if it still remains high. Core Measures Venous Thromboembolism VTE Risk Factors Surgery No Mechanical VTE Prophylaxis d/t N/A MechProphylax Ordered No VTE Pharm Prophylaxis d/t NA PharmProphylax ordered
[2017-12-08 14:09] VITALS: BP 110/80
[2017-12-08] MEDS ORDERED: LOVENOX40 MG/0.1 SC (14:09)
[2017-12-08] MEDS ORDERED: PERCOCET 5-3251 EACH PO (14:09)
== END 2017-12-08 15:58 | disposition home health service (06) | DRG 470 ==
LOC: SDA 02:12 → ENRESERV 12:21 → ENTRNSPT 13:25 → EDTRNSPTSTS 13:53 → EDTRNSPT 13:53 → 2NA 14:03 → CMPTRNSPT 14:12 → DELTRNSPT 12-08 15:07 → ENTRNSPT 12-08 15:48 → EDTRNSPTSTS 12-08 15:53 → 2NA 12-08 15:58 → CMPTRNSPT 12-08 16:06
PROVIDERS: Nurse Practitioner; Physician Assistant Surgical
PROC: 0SRD0J9 Replacement of Left Knee Joint with Synthetic Substitute, Cemented, Open Approach (ICD-10-PCS; principal; 2017-12-06)
PROC: 3E0T3BZ Introduction of Anesthetic Agent into Peripheral Nerves and Plexi, Percutaneous Approach (ICD-10-PCS; 2017-12-06)
DX: M17.12 Unilateral primary osteoarthritis, left knee (principal); E11.9 Type 2 diabetes mellitus without complications; E78.5 Hyperlipidemia, unspecified; I10 Essential (primary) hypertension; F32.9 Major depressive disorder, single episode, unspecified; F17.210 Nicotine dependence, cigarettes, uncomplicated; Z79.4 Long term (current) use of insulin
CPT/HCPCS: 2NAP; 36415; 82436; 87086; 97110-GO; 97116-GO; 97161-GP; 97530-GO; C1713; J0131; J0690; J1650; J1815; J1885; J2405; J2550; J2795; J7120

== ENCOUNTER 2018-01-05 10:00 | Emergency (ER) | payer OTHER, MEDICARE ==
[~2018-01-05] VITALS: Ht 175.3 cm; Wt 106.1 kg
--- NOTE | 2018-01-05 11:12 | ED UPPER/LOWER EXTREMITY COMPL ---
History of Present Illness General Chief Complaint: Lower Extremity Problems Stated Complaint: ANNA WEINBERG FOR L LEG PAIN Source: patient, old records Exam Limitations: no limitations Vital Signs & Intake/Output Vital Signs & Intake/Output Vital Signs Date Time Temp Pulse Resp B/P B/P Pulse O2 O2 Flow FiO2 Mean Ox Delivery Rate 01/05 1552 97.7 75 20 158/90 98 Room Air 01/05 1218 99.2 80 18 128/72 96 Room Air 01/05 1131 Room Air 01/05 1011 98.3 90 18 132/80 99 Room Air Allergies Coded Allergies: NO KNOWN ALLERGIES (12/21/16) Reconcile Medications Benazepril HCl 10 MG TABLET 1 TAB PO DAILY BP (Reported) Cephalexin (Keflex) 500 MG CAPSULE 1 CAP PO TID cellulitis Dapagliflozin Propanediol (Farxiga) 5 MG TABLET 1 TAB PO DAILY DM (Reported) Enoxaparin Sodium (Lovenox) 40 MG/0.4 ML SYRINGE 0.4 ML SC DAILY DVT PROPHYLAXIS Gabapentin (Neurontin) 300 MG CAPSULE 1 CAP PO TID NERVE PAIN (Reported) Glipizide 10 MG TABLET 1 TAB PO DAILY DM (Reported) Insulin Glargine,Hum.rec.anlog (Lantus Solostar) 100 UNIT/ML (3 ML) INSULN.PEN 40 UNITS SC BID DM II (Reported) Metoprolol Tartrate 25 MG TABLET 1 TAB PO BID HEART (Reported) Oxycodone HCl/Acetaminophen (Percocet 5-325 MG Tablet) 5 MG-325 MG TABLET 1 TAB PO BID PRN pain Oxycodone HCl/Acetaminophen (Percocet 5-325 MG Tablet) 5 MG-325 MG TABLET 1-2 TAB PO Q4P PRN PAIN Pantoprazole Sodium (Protonix) 40 MG TABLET.DR 1 TAB PO DAILY ACID REFLUX ( Reported) Pravastatin Sodium 40 MG TABLET 1 TAB PO DAILY CHOLESTEROL (Reported) Triage Note: PT TO ED FOR L ARGUETA BONE AND ANKLE PAIN AND SWELLING THAT BEGAN OVERNIGHT, KNEE REPLACEMENT DONE HERE ON 12/06. Triage Nurses Notes Reviewed? yes Onset: Abrupt Duration: day(s): (1), constant Timing: recent history Severity: moderate Severity Numbers: 7 Pain/Injury Location: Left: Leg. 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 He denies any redness or warmth to his incision site no fever chills nausea vomiting. Patient denies recent trauma or injury is not taken anything for symptoms. He spoke with the on-call nurse who advised to come to the hospital. He finished his course of Lovenox 21 days after the surgery and is not currently on any blood thinners (Brett Russo) Past History Travel History Traveled to [place] past 21 day No Medical History Any Pertinent Medical History? 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 No (Brett Russo) Review of Systems Review of Systems Constitutional: Reports: see HPI. Comments Review of systems: See HPI, All other systems negative. Constitutional, no chills no fever, HEENT: no sore throat no congestion Cardiovascular: No chest pain , no palpitation Skin: no rashes, no change in skin Respiratory: No dyspnea no cough GI: No nausea no vomiting, no diarrhea, Muscle skeletal: No joint pain, no back pain Neurologic: , no headache Heme/endocrine: No bruising (Brett Russo) Physical Exam Physical Exam General Appearance: well developed/nourished, no apparent distress, alert, awake Comments: Well-developed well-nourished patient in no apparent distress. HEENT: Atraumatic, extraocular motion intact Neck: Supple, FROM Back: FROM Cardiovascular: Regular rate and rhythms no murmur Respiratory: No respiratory distress. Patient speaking in full complete sentences. Breath sounds clear to auscultation bilaterally: NO W/R/R upper Extremities: full range of motion Hip/Pelvis: Atraumatic/Stable. FROM. No pain with pelvic compression Knee: The incision is clean dry and intact there is no surrounding erythema and warmth FROM. No joint swelling, NO pain with rom Leg: There is mild amount of erythema and warmth noted to the medial aspect of the left lower argueta, 2+ edema to the right foot and leg, no streaking up the leg noted, 5 out of 5 strength in the lower extremity, normal dorsiflexion of great toe bilaterally, gross sensation is intact Ankle/Foot: Atraumatic/stable. Skin intact. FROM. No swelling, no effusion. No laxity on exam Pulses: Normal/equal DP/PT pulses bilaterally. Brisk cap refill Neuro: awake, alert, and oriented to person, place and time. There were no obvious focal neurologic abnormalities. Skin: Warm & dry;No appreciable rash on exposed skin Psych: Mood affect normal, normal memory normal judgment. Diagram Legs Front/Back 1) (Lizabeth ALEXANDER,Brett) Progress Differential Diagnosis: cellulitis, contusion, dislocation, DVT, gout, septic arthritis, sprain, tendon injury Plan of Care: Orders Procedure Date/time Status BLOOD CULTURE 01/05 1148 Active COMPREHENSIVE METABOLIC PANEL 01/05 1148 Complete CBC WITHOUT DIFFERENTIAL 01/05 1148 Complete Laboratory Tests 01/05/18 1215: Anion Gap 9, Estimated GFR > 60, BUN/Creatinine Ratio 21.4, Glucose 177 H, Calcium 9.3, Total Bilirubin 0.4, AST 17, ALT 17 L, Alkaline Phosphatase 104, Total Protein 6.8, Albumin 3.9, Globulin 2.9, Albumin/Globulin Ratio 1.3, CBC w Diff NO MAN DIFF REQ, RBC 4.68 L, MCV 87.5, MCH 29.3, MCHC 33.5, RDW 14.0, MPV 8.8, Gran % 68.0, Lymphocytes % 21.4, Monocytes % 7.2, Eosinophils % 3.0, Basophils % 0.4, Absolute Granulocytes 5.8, Absolute Lymphocytes 1.8, Absolute Monocytes 0.6, Absolute Eosinophils 0.3, Absolute Basophils 0 Microbiology 01/05 1215 BLOOD: Blood Culture - RECD Labs ordered old records reviewed ultrasound and x-ray ordered case discussed with Dr. Sanabria agrees plan I discussed with the patient at length all of his lab results ultrasound and x- ray findings calls placed to the patient's orthopedist Dr. Pastor. Patient has full range of motion of the left knee I considered septic arthritis however there is no overlying redness warmth or swelling to the left knee the symptoms are to the lower argueta. Patient is nontoxic appearing 01/05/2018 2:41:44 PM multiple calls have been placed to the patient's orthopedist still pending callback patient resting in no apparent distress reports pain resolved with Dilaudid 01/05/2018 3:24:20 PM I spoke with Dr. Pastor regarding the patient's presenting symptoms there is no pain to his knee there is no localized redness warmth or pain to the knee I believe it is a lower argueta cellulitis he is okay with having him follow-up as an outpatient setting home with by mouth antibiotics. I discussed with the patient and his at length plan of care my discussion with Dr. Pastor return precautions were discussed at length. They feel comfortable plan the patient is nontoxic appearing afebrile. He'll follow up with Dr. Pastor and his primary care physician this week he will return anytime sooner with any concerns Diagnostic Imaging: Viewed by Me: Ultrasound. Discussed w/RAD: Ultrasound. Radiology Impression: PATIENT: JOSIAH JUAREZ PRESENT AGE: 52 PATIENT ACCOUNT NO: [id number] : 63 LOCATION: [facility] ORDERING PHYSICIAN: Brett ALEXANDER SERVICE DATE: 01/05/18 EXAM TYPE: RAD - XRY- KNEE COMPLETE LEFT; [id number], LEFT EXAMINATION: XR TIBIA AND FIBULA, LEFT Left knee series CLINICAL INFORMATION: Left knee pain swelling status post replacement November 2017. COMPARISON: None TECHNIQUE: AP and lateral views of the left tibia and fibula were obtained. 4 views of the left knee FINDINGS: Left knee Left total knee arthroplasty is noted with the components in usual position. There is no periprosthetic fracture or suspicious area of lucency. There is a mild joint effusion. There is mild soft tissue swelling anterior to the patella Left tibia fibula: The bone and surrounding soft tissues are normal. I do not see a fracture. IMPRESSION: Left knee: Left total knee arthroplasty without definite complication by x-ray. Small joint effusion. Mild soft tissue swelling anteriorly Left tibia fibula: Unremarkable. DICTATED BY: Osvaldo Coelho MD DATE/TIME DICTATED:01/05/181299 SUCTION OPERATOR:VIRI DATE/TIME TRANSCRIBED:01/05/181299 CONFIDENTIAL, DO NOT COPY WITHOUT APPROPRIATE AUTHORIZATION. <Electronically signed in Other Vendor System> SIGNED BY: Osvaldo Coelho MD 01/05/18 1307, PATIENT: JOSIAH JUAREZ PRESENT AGE: 52 PATIENT ACCOUNT NO: [id number] : 63 LOCATION: [facility] ORDERING PHYSICIAN: Brett ALEXANDER SERVICE DATE: 01/05/18 EXAM TYPE: US - US-UNILATERAL VENOUS DOPPLER EXAMINATION: US TRIPLEX LOWER EXTREMITY, LEFT CLINICAL INFORMATION: Left lower extremity swelling. Postop. COMPARISON: None TECHNIQUE: Color-flow triplex imaging with spectral analysis and compression Doppler were performed on the lower extremity. FINDINGS: Respiratory variation, normal compression and augmented flow are noted throughout the lower extremity. The visualized common femoral vein, superficial femoral vein, profunda femoral vein, popliteal vein and midcalf peroneal and posterior tibial venous segments show no evidence of deep venous thrombosis. There is no Juárez's cyst. IMPRESSION : Normal triplex scan without evidence of deep venous thrombosis involving the lower extremity. DICTATED BY: Kinga Mayfield MD DATE/TIME DICTATED:01/05/181328 SUCTION OPERATOR:VIRI DATE/TIME TRANSCRIBED:01/05/181328 CONFIDENTIAL, DO NOT COPY WITHOUT APPROPRIATE AUTHORIZATION. <Electronically signed in Other Vendor System> SIGNED BY: Kinga Mayfield MD 01/05/18 1341 (Brett Russo) Departure Departure Time of Disposition: 152 Disposition: HOME OR SELF CARE Condition: Stable Clinical Impression Primary Impression: Cellulitis Referrals: Jose Corrales MD (PCP/Family) Additional Instructions: Keflex as directed. Percocet for breakthrough pain. Ice as discussed rest keep leg elevated. Follow-up with her primary care physician as well as your orthopedist Dr. Pastor Sunday. Return to emergency room at anytime sooner with any concerns -if you develop fever chills worsening redness pain swelling or any other concerns Departure Forms: Customer Survey General Discharge Information Prescriptions: Current Visit Scripts Cephalexin (Keflex) 1 CAP PO TID #21 CAP Oxycodone HCl/Acetaminophen (Percocet 5-325 MG Tablet) 1 TAB PO BID PRN pain #10 TAB (Lizabeth ALEXANDER,Brett) PA/BOTTLE GAUGER Co-Sign Statement Statement: ED Attending supervision documentation- [] I saw and evaluated the patient. I have also reviewed all the pertinent lab results and diagnostic results. I agree with the findings and the plan of care as documented in the PA's/BOTTLE GAUGER's documentation. [X] I have reviewed the ED Record and agree with the PA's/BOTTLE GAUGER's documentation. [] Additions or exceptions (if any) to the PAs/BOTTLE GAUGER's note and plan are summarized below: [] (Cachorro Richardson DO
[2018-01-05 12:55] LABS: ABSOLUTE BASOPHIL COUNT 0 /CUMM (0.0-0.2); ABSOLUTE EOSINOPHIL COUNT 0.3 /CUMM (0.0-0.7); ABSOLUTE GRANULOCYTE CT 5.8 /CUMM (1.4-6.5); ABSOLUTE LYMPH COUNT 1.8 /CUMM (1.2-3.4); ABSOLUTE MONOCYTE COUNT 0.6 /CUMM (0.10-0.60); BASOPHIL % 0.4 % (0.0-2.0); MEAN CORPUSCULAR HGB 29.3 PG (27.0-31.0); MEAN CORPUSCULAR HGB CONC 33.5 G/DL (33.0-37.0); MEAN CORPUSCULAR VOLUME 87.5 FL (80.0-94.0); MEAN PLATELET VOLUME 8.8 FL (7.4-10.4); PLATELET COUNT 264 /CUMM (130-400); RED BLOOD CELL CT 4.68 /CUMM (4.70-6.10); WHITE BLOOD CELL COUNT 8.5 /CUMM (4.8-10.8)
--- NOTE | 2018-01-05 13:07 | RADIOLOGY REPORT ---
EXAMINATION: XR TIBIA AND FIBULA, LEFT Left knee series CLINICAL INFORMATION: Left knee pain swelling status post replacement November 2017. COMPARISON: None TECHNIQUE: AP and lateral views of the left tibia and fibula were obtained. 4 views of the left knee FINDINGS: Left knee Left total knee arthroplasty is noted with the components in usual position. There is no periprosthetic fracture or suspicious area of lucency. There is a mild joint effusion. There is mild soft tissue swelling anterior to the patella Left tibia fibula: The bone and surrounding soft tissues are normal. I do not see a fracture. IMPRESSION: Left knee: Left total knee arthroplasty without definite complication by x-ray. Small joint effusion. Mild soft tissue swelling anteriorly Left tibia fibula: Unremarkable.
--- NOTE | 2018-01-05 13:41 | ULTRASOUND REPORT ---
EXAMINATION: US TRIPLEX LOWER EXTREMITY, LEFT CLINICAL INFORMATION: Left lower extremity swelling. Postop. COMPARISON: None TECHNIQUE: Color-flow triplex imaging with spectral analysis and compression Doppler were performed on the lower extremity. FINDINGS: Respiratory variation, normal compression and augmented flow are noted throughout the lower extremity. The visualized common femoral vein, superficial femoral vein, profunda femoral vein, popliteal vein and midcalf peroneal and posterior tibial venous segments show no evidence of deep venous thrombosis. There is no Juárez's cyst. IMPRESSION: Normal triplex scan without evidence of deep venous thrombosis involving the lower extremity.
[2018-01-05] MEDS ORDERED: KEFLEX500 M1 PO (15:06)
[2018-01-05] MEDS ORDERED: PERCOCET 5-3251 EACH PO (15:06)
[2018-01-05 15:52] VITALS: BP 158/90
== END 2018-01-05 16:31 ==
LOC: ERH 10:00
PROVIDERS: Physician Assistant Medical
DX: L03.116 Cellulitis of left lower limb (principal)
CPT/HCPCS: 73562-LT; 73590-LT; 87040; 96374; 96376